=== PATIENT | male | born 1985 | race Asian ===

== ENCOUNTER 2017-08-02 09:53 | Emergency (ER) | payer BC ==
[~2017-08-02] VITALS: Wt 80.0 kg
[2017-08-02 10:23] LABS: BASOPHILS % 0.4 % (0.0-2.0); EOSINOPHILS # 0.1 10^3/ul (0.0-0.5); EOSINOPHILS % 1.2 % (0.0-7.0); HEMOGLOBIN 15.3 g/dl (14.0-18.0); LYMPHOCYTES # 1.3 10^3/ul (0.8-2.9); LYMPHOCYTES % 17.3 % (15.0-51.0); MEAN CORPUSCULAR HEMOGLOBIN 32.8 pg (29.0-33.0); MEAN CORPUSCULAR HGB CONC 34.8 g/dl (32.0-37.0); MEAN CORPUSCULAR VOLUME 94.4 fl (82.0-101.0); MEAN PLATELET VOLUME 8.6 fl (7.4-10.4); MONOCYTE # 0.6 10^3/ul (0.3-0.9); MONOCYTES % 8.1 % (0.0-11.0); NEUTROPHIL # 5.6 10^3/ul (1.6-7.5); NEUTROPHILS % 72.7 % (39.0-77.0); PLATELET COUNT 243 10^3/UL (140-415); RED BLOOD COUNT 4.66 10^6/ul (4.70-6.10); WHITE BLOOD COUNT 7.7 10^3/ul (4.8-10.8)
[2017-08-02 10:42] LABS: ALANINE AMINOTRANSFERASE 69 IU/L (13-69); ALBUMIN 4.8 g/dl (3.3-4.9); ALKALINE PHOSPHATASE 91 IU/L (42-121); ASPARTATE AMINO TRANSFERASE 44 IU/L (15-46); TOTAL PROTEIN 8.4 g/dl (6.1-8.1)
[2017-08-02 11:22] LABS: BILIRUBIN,INDIRECT 0.8 mg/dl (0-1.1); BILIRUBIN,TOTAL 0.8 mg/dl (0.2-1.3)
--- NOTE | 2017-08-03 07:27 | ERD ---
ER Documentation Chief Complaint Date/Time DATE: 08/03/17 TIME: 07:25 Chief Complaint EXPOSURE TO BODY FLUID WHILE WORKING. NO DISTRESS. HPI Is a 31-year-old male with past medical history of hypertension that presents to the emergency department as an employee of [facility] [employer] [facility] [employer] who within the past 24 hours had a body fluid exposure to his left eye. The patient denies any changes in vision any further complaints at this time. He went to [facility] and was instructed to come to the emergency department for ancillary blood work for an employee body fluid exposure. ROS All systems reviewed and are negative except as per history of present illness. Physical Exam Vitals Vital Signs Date Time Temp Pulse Resp B/P Pulse Ox O2 Delivery O2 Flow Rate FiO2 08/02/17 10:08 98.0 65 20 155/92 98 Physical Exam Constitutional:Well-developed. Well-nourished. HEENT:Normocephalic. Atraumatic.Pupils were equal round reactive to light. No conjunctival injection Respiratory: Not using accessory muscles of respiration.Lungs were clear to auscultation bilaterally. No rhonchi. No rales. No wheezing. Cardiovascular: Regular rate regular rhythm.No murmurs. No rubs were appreciated.S1, S2 normal. Distal pulses are palpable 2+ bilaterally. Skin: No petechia, no purpura. No lesions on the palms or the soles of the feet. No maculopapular rash. Result Diagram: 08/02/17 1000 Results 24 hrs Laboratory Tests Test 08/02/17 10:00 White Blood Count 7.710^3/ul Red Blood Count 4.6610^6/ul Hemoglobin 15.3g/dl Hematocrit 44.0% Mean Corpuscular Volume 94.4fl Mean Corpuscular Hemoglobin 32.8pg Mean Corpuscular Hemoglobin Concent 34.8g/dl Red Cell Distribution Width 13.0% Platelet Count 91439^3/UL Mean Platelet Volume 8.6fl Neutrophils % 72.7% Lymphocytes % 17.3% Monocytes % 8.1% Eosinophils % 1.2% Basophils % 0.4% Nucleated Red Blood Cells % 0.0/100WBC Neutrophils # 5.610^3/ul Lymphocytes # 1.310^3/ul Monocytes # 0.610^3/ul Eosinophils # 0.110^3/ul Basophils # 0.010^3/ul Nucleated Red Blood Cells # 0.010^3/ul Total Bilirubin 0.8mg/dl Direct Bilirubin 0.00mg/dl Indirect Bilirubin 0.8mg/dl Aspartate Amino Transf (AST/SGOT) 44IU/L Alanine Aminotransferase (ALT/SGPT) 69IU/L Alkaline Phosphatase 91IU/L Total Protein 8.4g/dl Albumin 4.8g/dl Hepatitis B Surface Antigen NEGATIVE Hepatitis B Surface Antibody POSITIVE Hepatitis C Antibody NEGATIVE HIV (1&2) Antibody NEGATIVE Procedures/MDM This patient presented to the emergency department with a body fluid exposure to his left eye which had been from the patient he has been evaluating. Ancillary laboratory work have been obtained that was necessary to determine if there is any exposure to HIV or hepatitis. Employee health will follow up with the patient ancillary laboratory work. Departure Diagnosis: Primary Impression: Exposure to blood or body fluid Condition: Fair Patient Instructions: Body Fluid Exposure, Health Care Worker LG MUNGUIA Aug 03, 2017 07:27
== END 2017-08-02 10:40 | disposition home or self-care (01) ==
LOC: E/R 09:53
DX: Z77.21 Contact with and (suspected) exposure to potentially hazardous body fluids (principal); I10 Essential (primary) hypertension
CPT/HCPCS: 80076; 85025; 86703; 86706; 86803; 87340; 99283